=== PATIENT | female | born 1960 | race Caucasian/White ===

== ENCOUNTER 2017-09-27 13:19 | Emergency (ER) | payer OTHER, MEDICARE ==
--- NOTE | 2017-09-27 13:34 | PDOC ---
History of Present Illness <Lizeth Reynoso - Last Filed: 09/27/17 18:52> - History of Present Illness Initial Comments: 09/27/17 15:05 Chief complaint: Right lower quadrant abdominal pain History of present illness: Right lower quadrant pain since last night. No nausea vomiting or diarrhea. Normal bowel movement yesterday. No loss of appetite. Pain is constant. Review of systems: No urinary tract symptoms including dysuria frequency urgency hesitancy or hematuria. No fever or back pain. No vaginal bleeding or discharge. No fever/chills, URI symptoms, sore throat, cough, chest pain, shortness of breath, visual or focal neurologic symptoms, unsteadiness of gait. Remainder systems reviewed and found to be negative Past medical history. Patient had a similar episode several years ago, underwent pelvic ultrasound and CT imaging, no definite diagnosis, resolved without treatment. No other history of GI disease or NITRO MAN and disease. No children. Otherwise negative Social history: No tobacco alcohol or nonprescription drugs. Fully active and without disability Family history reviewed and noncontributory including diabetes and other metabolic diseases, early coronary artery disease, lung disease, and cancer Physical exam: Alert oriented 3 well-developed well-nourished no acute distress cheerful and cooperative Afebrile, vital signs normal No pallor or icterus. PERRLA, fundi benign, ENT clear Neck supple without bruit mass or nodes Chest clear CV regular without murmur rub or gallop Abdomen nondistended. Bowel sounds normal. Soft without mass or organomegaly. There is mild to moderate tenderness to deep palpation in the right lower quadrant/right pelvic region without guarding or rebound. No CVAT. Extremities no CCE Skin clear, no rash, adequate turgor and wet mucous membranes Neurological intact Impression: Right lower quadrant/right pelvic pain. Possibilities include early acute appendicitis, ovarian tumor or torsion, diverticulitis, partial SBO, ureteral colic, abdominal wall or muscular pain. Plan: Urinalysis and urine culture, CBC and chemistries, analgesics, further imaging depending on the limited or results. <Baltazar Quintero - Last Filed: 09/28/17 09:20> - General Chief Complaint: Pain Stated Complaint: RIGHT LOWER QUADRANT PAIN Time Seen by Provider: 09/27/17 13:33 Past History <Lizeth Reynoso - Last Filed: 09/27/17 18:52> <Baltazar Quintero - Last Filed: 09/28/17 09:20> - Past Medical History Allergies/Adverse Reactions: Allergies Allergy/AdvReac Type Severity Reaction Status Date / Time Sulfa (Sulfonamide Allergy Rash Verified 09/27/17 13:21 Antibiotics) sulfadiazine Allergy Rash Verified 09/27/17 13:21 Home Medications: Ambulatory Orders Alprazolam 1 mg PO TID 09/27/17 Ascorbate Calcium [Vitamin C] 500 mg PO DAILY 09/27/17 Cholecalciferol (Vitamin D3) [Vitamin D3] 2,000 unit PO DAILY 09/27/17 Duloxetine HCl [Cymbalta] 60 mg PO HS 09/27/17 Levothyroxine [Synthroid -] 75 mcg PO DAILY 09/27/17 Zolpidem Tartrate [Ambien] 10 mg PO HS 09/27/17 *Physical Exam - Vital Signs Last Vital Signs Temp Pulse Resp BP Pulse Ox 98.1 F 68 20 118/78 100 09/27/17 17:35 09/27/17 17:35 09/27/17 17:35 09/27/17 17:35 09/27/17 13:21 <Lizeth Reynoso - Last Filed: 09/27/17 18:52> ED Treatment Course - LABORATORY CBC & Chemistry Diagram: 09/27/17 14:18 09/27/17 14:15 - ADDITIONAL ORDERS Additional order review: Laboratory Results 09/27/17 09/27/17 14:15 13:38 Sodium 136 Potassium 3.9 Chloride 102 Carbon Dioxide 26 Anion Gap 8 BUN 14 Creatinine 0.7 Creat Clearance w eGFR > 60 Random Glucose 96 Calcium 9.6 Total Bilirubin 0.7 AST 20 ALT 14 Alkaline Phosphatase 57 Total Protein 7.1 Albumin 4.4 Urine Color Prerna Urine Appearance Clear Urine pH 5.5 Ur Specific [place] 1.020 Urine Protein Negative Urine Glucose (UA) Negative Urine Ketones Negative Urine Blood Negative Urine Nitrite Negative Urine Bilirubin Negative Urine Urobilinogen 0.2 Ur Leukocyte Esterase Negative 09/27/17 14:18 RBC 4.13 MCV 95.3 MCHC 34.8 RDW 12.6 MPV 8.3 Neutrophils % 60.5 Lymphocytes % 27.2 Monocytes % 7.7 Eosinophils % 2.9 Basophils % 1.7 - RADIOLOGY Radiograph Interpretation: 09/27/17 18:52 EXAM: CT abdomen/pelvis with contrast HISTORY: Right lower quadrant pain COMPARISON: None. FINDINGS: The appendix is within normal limits in size. There is no periappendiceal inflammatory change. No evidence on this examination for acute appendicitis. No free air 1.2 cm nonspecific low-density finding noted in the right lower liver. There is nonspecific coarse calcification of the adrenal glands bilaterally. No obvious gallstones There is a mildly prominent extrarenal renal pelvis bilaterally of questionable clinical significance. There are no renal or ureteral calculi seen. There is moderately abundant stool noted in the colon. There is no evidence of intestinal obstruction. There is sigmoid diverticulosis without obvious diverticulitis. Urinary bladder is partially decompressed. There are no bladder calculi.. Misael Gamez MD 09/27/2017 18:46 EST - Medications Given in the ED: ED Medications Discontinued Medications Generic Name Dose Route Start Last Admin Trade Name Freq PRN Reason Stop Dose Admin Ibuprofen 800 mg 09/27/17 15:05 09/27/17 15:24 Motrin - PO 09/27/17 15:06 800 mg ONCE ONE Administration <Lizeth Reynoso - Last Filed: 09/27/17 18:52> - LABORATORY CBC & Chemistry Diagram: 09/27/17 14:18 09/27/17 14:15 <Baltazar Quintero - Last Filed: 09/28/17 09:20> Medical Decision Making - Medical Decision Making 09/28/17 09:18 Ultrasound showed no pelvic pathology. However, the right ovary was not seen, as in prior studies. CT with contrast was also negative. Some retained stool and increased bowel gas , but no sign of obstruction With the normal labs and the patient's mild physical findings, the most likely diagnosis is either constipation or excessive gas. MiraLAX and Gas-X or suggested. The patient was fully ambulatory and in no significant pain upon discharge, to follow-up if pain worsens or any other symptoms develop. Otherwise follow with primary physician <Baltazar Quintero - Last Filed: 09/28/17 09:20> *DC/Admit/Observation/Transfer <Lizeth Reynoso - Last Filed: 09/27/17 18:52> - Discharge Dispostion Admit: No <IngridBaltazar Gonzlaez - Last Filed: 09/28/17 09:20> Diagnosis at time of Disposition: Abdominal pain Qualifiers: Abdominal location: right lower quadrant Qualified Code(s): R10.31 - Right lower quadrant pain - Discharge Dispostion Disposition: HOME Condition at time of disposition: Stable - Patient Instructions Printed Discharge Instructions: How to Avoid Gas, Increased Dietary Fiber May Improve Constipation Conditions With Pelvic Raad, DI for Abdominal Pain-Adult Additional Instructions: Ultrasound and CAT scan did not reveal any abnormalities that may be responsible for your pain It may be related to constipation or excess gas It is recommended to try MiraLAX and and anti-gas medication such as Gas-X or charcoal for symptomatic relief If the pain worsens or you develop any other symptoms such as fever, vomiting, diarrhea, urinary tract symptoms, or vaginal bleeding or discharge, return to the emergency room immediately or see your family physician.
[2017-09-27 13:42] LABS: PH,URINE 5.5 (4.5-8); URINE APPEARANCE Clear; URINE BILIRUBIN Negative (NEGATIVE); URINE BLOOD Negative (NEGATIVE); URINE COLOR AMBER; URINE GLUCOSE (UA) Negative (NEGATIVE); URINE KETONE Negative (NEGATIVE); URINE LEUK ESTERASE Negative (NEGATIVE); URINE NITRITE Negative (NEGATIVE); URINE PROTEIN Negative (NEGATIVE); URINE UROBILINOGEN 0.2 (0.2-1.0)
[2017-09-27 13:49] VITALS: BMI 24.0
[2017-09-27 14:22] LABS: BASO % 1.7 % (0-2.0); EOS % 2.9 % (0-4.5); HEMATOCRIT 39.4 % (32.4-45.2); HEMOGLOBIN 13.7 GM/dl (10.7-15.3); LYMPH % 27.2 % (8-40); MCH 33.1 pg (25.7-33.7); MCHC 34.8 g/dl (32.0-36.0); MEAN CELL VOLUME 95.3 fl (80-96); MEAN PLT VOLUME 8.3 fl (7.5-11.1); MONO % 7.7 % (3.8-10.2); NEUT % 60.5 % (42.8-82.8); PLATELET COUNT 279 K/MM3 (134-434); RBC 4.13 M/mm3 (3.60-5.2); RDW 12.6 % (11.6-15.6); WHITE BLOOD COUNT 7.2 K/mm3 (4.0-10.8)
[2017-09-27 14:35] LABS: ALK PHOS 57 U/L (32-92); GLUCOSE,RANDOM 96 mg/dl (74-106)
[2017-09-27 14:44] LABS: ALBUMIN 4.4 g/dl (3.5-5.0); ANION GAP 8 (8-16); BILIRUBIN,TOTAL 0.7 mg/dl (0.2-1.0); BLOOD UREA NITROGEN 14 mg/dl (7-18); CALCIUM 9.6 mg/dl (8.4-10.2); CHLORIDE 102 mmol/L (98-107); CO2 26 mmol/L (22-28); CREATININE 0.7 mg/dl (0.6-1.3); POTASSIUM 3.9 mmol/L (3.5-5.1); SGOT/AST 20 U/L (10-42); SGPT/ALT 14 U/L (10-40); SODIUM 136 mmol/L (136-145); TOT PROT 7.1 g/dl (6.4-8.3)
[2017-09-27] MEDS ORDERED: IBUPROFEN 400 MG TABLET (FP) PO ONE ×2 (15:05→15:19)
[2017-09-27 17:36] VITALS: BP 118/78; PULSE 68; TEMP 98.1
== END 2017-09-27 19:01 | disposition home or self-care (01) ==
LOC: FER 13:19
DX: R10.31 Right lower quadrant pain (principal)
CPT/HCPCS: 36415; 74177-TC; 76856-TC; 80053; 81003; 85025; 99282-25